=== PATIENT | male | born 1960 | race Caucasian/White ===

== ENCOUNTER → 2019-06-23 | Outpatient (CLI) | payer MEDICARE, MEDICAID ==
[2019-06-23 13:02] LABS: ABSOLUTE EOSINOPHILS # (AUTO) 0.1 10^3/uL (0.0-0.6); ABSOLUTE MONOCYTES (AUTO) 0.2 10^3/uL (0.1-1.4); ABSOLUTE NEUT (AUTO) 3.6 10^3/uL (1.7-8.2); BASOPHILS % (AUTO) 0.5 % (0-2); HEMATOCRIT 31.3 % (37.9-51.0); HEMOGLOBIN 10.8 g/dL (13.5-17.0); LYMPHOCYTES % (AUTO) 19.3 % (13-45); MEAN CORPUSCULAR HEMOGLOBIN 31.8 pg (27.0-33.4); MEAN CORPUSCULAR HGB CONC 34.6 g/dL (32.0-36.0); MEAN CORPUSCULAR VOLUME 92 fl (80-97); PLATELET COUNT 211 10^3/uL (150-450); RED BLOOD COUNT 3.41 10^6/uL (4.35-5.55); RED CELL DISTRIBUTION WIDTH 14.4 % (11.5-14.0); SEGMENTED NEUTROPHILS % (AUTO) 72.2 % (42-78); TOTAL CELLS COUNTED % (AUTO) 100 %
--- NOTE | 2019-06-23 13:06 | RADIOLOGY REPORT (SQ) ---
EXAM DESCRIPTION: SACRUM AND COCCYX COMPLETED DATE/TIME: 06/23/2019 12:56 pm REASON FOR STUDY: PRESSURE ULCER OF LEFT BUTTOCK, STAGE 3 L89.323 PRESSURE ULCER OF LEFT BUTTOCK, S TAGE 3 COMPARISON: None. NUMBER OF VIEWS: Three views. TECHNIQUE: AP, lateral, and tilt views of the sacrum and coccyx. LIMITATIONS: None. FINDINGS: MINERALIZATION: Normal. BONES: There is posterior displacement of the distal coccyx. No worrisome bone lesions. SOFT TISSUES: No soft tissue swelling. No foreign body. OTHER: No other significant finding. IMPRESSION: POSTERIOR DISPLACEMENT OF THE DISTAL COCCYX. UNKNOWN IF THIS IS A RECENT OR OLD FINDING . NO OTHER SIGNIFICANT RADIOGRAPHIC FINDING. TECHNICAL DOCUMENTATION: JOB ID: [id number] [employer]- All Rights Reserved Reading location - IP/workstation name: [email or web address]
[2019-06-23 13:24] LABS: ALANINE AMINOTRANSFERASE 27 U/L (21-72); ALBUMIN 3.7 g/dL (3.5-5.0); ALKALINE PHOSPHATASE 97 U/L (38-126); ANION GAP 8 (5-19); ASPARTATE AMINO TRANSFERASE 18 U/L (17-59); BILIRUBIN,DIRECT 0.4 mg/dL (0.0-0.4); BILIRUBIN,TOTAL 0.4 mg/dL (0.2-1.3); BLOOD UREA NITROGEN 29 mg/dL (7-20); C-REACTIVE PROTEIN 20.6 mg/L (<10.0); CALCIUM 9.2 mg/dL (8.4-10.2); CARBON DIOXIDE 27 mmol/L (22-30); CHLORIDE 102 mmol/L (98-107); GLUCOSE 91 mg/dL (75-110); POTASSIUM 3.8 mmol/L (3.6-5.0); TOTAL PROTEIN 6.2 g/dL (6.3-8.2)
[2019-06-23 13:38] LABS: ERYTHROCYTE SEDIMENTATION RATE 55 mm/hr (0-20)
== END ==
LOC: OD 12:32
PROVIDERS: ATTEND Nurse Practitioner Family
DX: L89.323 Pressure ulcer of left buttock, stage 3 (principal)
CPT/HCPCS: 36415; 72220; 80053; 85025; 85652; 86140